=== PATIENT | female | born 1970 | race American Indian/Alaskan Native ===

== ENCOUNTER 2016-08-20 12:19 | Day surgery (SDC) | payer OTHER ==
[2016-08-20] MEDS ORDERED: NACL 0.9% 1000 ML 1,000 ML IV SCH (13:00)
[2016-08-20] MEDS ORDERED: LIDOCAINE VISCOUS 2% ONE (13:23)
[2016-08-20] MEDS ORDERED: XYLOCAINE 1% 20 mL ONE ×2 (13:23→13:26)
[2016-08-20] MEDS ORDERED: NEO SYNEPHRINE ONE (13:23)
[2016-08-20] MEDS ORDERED: HURRICAINE ONE 20% TOPICAL SPRAY MM (13:26)
--- NOTE | 2016-08-20 13:28 | Anesthesia Consultation ---
Anesthesia Consult and Med Hx Date of service: 08/20/16 - Airway Anesthetic Teeth Evaluation: Good ROM Head & Neck: Adequate Mental/Hyoid Distance: Adequate Mallampati Class: Class II Intubation Access Assessment: Probably Good - Pulmonary Exam CTA: Yes - Cardiac Exam Cardiac Exam: RRR - Pre-Operative Health Status ASA Pre-Surgery Classification: ASA3 Proposed Anesthetic Plan: MAC - Pulmonary Hx Asthma: Yes SOB: Yes (chronic cough poss from interstitial lung disease) Hx Pneumonia: Yes - Cardiovascular System Hx Hypertension: Yes - Central Nervous System Hx Neuromuscular Disorder: Yes (RA) Hx Psychiatric Problems: No - Gastrointestinal Hx Gastroesophageal Reflux Disease: Yes - Endocrine Hx Renal Disease: Yes (elevated renal values, patient states values have always been elevated) Hx Insulin Dependent Diabetes: No - Hematic Hx Anemia: No Hx Sickle Cell Disease: No - Other Systems Hx Alcohol Use: No Hx Substance Use: No Hx Cancer: No Hx Obesity: No
[2016-08-20] MEDS ORDERED: SUBLIMAZE ONE (13:29)
[2016-08-20] MEDS ORDERED: DIPRIVAN 10 MG/ML IV ONE ×2 (13:29)
[2016-08-20] MEDS ORDERED: VERSED ONE (13:29)
--- NOTE | 2016-08-20 13:29 | Anesthesia Day of Surgery ---
Anesthesia Day of Surgery - Day of Surgery Patient Examined: Yes Patient H&P Reviewed: Yes Patient is NPO: Yes
--- NOTE | 2016-08-20 14:16 | Procedure Note ---
Date of procedure: 08/20/16 Pre-op diagnosis: abnormal cxr, chronic cough Post-op diagnosis: same Procedure: bronch w fluoro Anesthesia: MAC Surgeon: DEBORA FOREMAN Estimated blood loss: none Pathology: list Specimen disposition: to lab Condition: stable Disposition: no change
[2016-08-20] MEDS ORDERED: PROVENTIL IH ONE (14:19)
--- NOTE | 2016-08-20 14:20 | Event Note ---
procedure With informed consent procedure was performed. Via the rt nare scope was introduced. Good adduction and abduction of vocal cords noted. No upper airway, endo tracheal or endobronchial lesions noted. Bx, brushing and wshing done of rll. Pt tolerated procedure. Specimen sent for culture - wash cytology wash and brush and path . post procedure cxr ordered spoke w family see nurses and anesthesia notes for vital signs and meds received in procedure
[2016-08-20] MEDS ORDERED: XYLOCAINE TOPICAL 2% ONE (15:00)
--- NOTE | 2016-08-20 15:03 | XRay Report ---
Single view chest: History: Status post biopsy. Findings: Borderline cardiomegaly. Trachea is midline. Small pneumomediastinum is noted left side. No consolidation or pleural effusion. Impression: Small pneumomediastinum.
[2016-08-20 15:09] VITALS: BP 112/64
--- NOTE | 2016-08-20 15:19 | Post Anesthesia Evaluation ---
- Post Anesthesia Evaluation Patient Participated: Yes Airway Patent: Yes Stable Respiratory Function: Yes Temp > 96.8F: Yes Pain Manageable: Yes Adequeate Hydration: Yes Anesthesia Complications: No Block Receding Appropriately: Not Applicable
== END 2016-08-20 12:20 | disposition home or self-care (01) ==
LOC: GIO 12:19
PROVIDERS: ATTEND Specialist
DX: R91.8 Other nonspecific abnormal finding of lung field (principal); R05 Cough; J45.909 Unspecified asthma, uncomplicated; I10 Essential (primary) hypertension; K21.9 Gastro-esophageal reflux disease without esophagitis; M06.9 Rheumatoid arthritis, unspecified; F10.21 Alcohol dependence, in remission; Z87.01 Personal history of pneumonia (recurrent); Z98.890 Other specified postprocedural states; Z98.51 Tubal ligation status; Z79.82 Long term (current) use of aspirin; Z79.899 Other long term (current) drug therapy; Z91.09 Other allergy status, other than to drugs and biological substances; Z83.3 Family history of diabetes mellitus; Z82.49 Family history of ischemic heart disease and other diseases of the circulatory system; Z82.3 Family history of stroke
CPT/HCPCS: 31623; 31625; 71010; 87102; 87116; 87220; 88104; 88112; 88305; J2250; J2704; J3010; J7030; J2370